=== PATIENT | male | born 1990 | race African-American/Black ===

== ENCOUNTER 2018-07-16 10:44 | Emergency (ER) | payer OTHER ==
[~2018-07-16] VITALS: Ht 185.4 cm; Wt 72.6 kg
[2018-07-16 10:50] VITALS: BP 127/79
[2018-07-16] MEDS ORDERED: ROBAXIN 750 MG750 MG PO (11:19)
[2018-07-16] MEDS ORDERED: TORADOL 10 MG T10 MG PO (11:19)
[2018-07-16] MEDS ORDERED: NORCO 5-325 TA1 EACH PO (11:19)
== END 2018-07-16 11:23 | disposition home or self-care (01) ==
LOC: M.ERS 10:44
DX: M43.6 Torticollis (principal)